=== PATIENT | male | born 1990 | race Caucasian/White ===

== ENCOUNTER 2017-11-23 06:20 | Emergency (ER) | payer MEDICAID ==
[~2017-11-23] VITALS: Ht 188 cm; Wt 150.0 kg
[2017-11-23 06:20] VITALS: BP 135/83
== END 2017-11-23 06:50 | disposition home or self-care (01) ==
LOC: ED 06:30
DX: F43.0 Acute stress reaction (principal); F84.0 Autistic disorder
CPT/HCPCS: 99284